=== PATIENT | female | born 1980 | race Caucasian/White ===

== ENCOUNTER 2017-12-10 07:46 | Day surgery (SDC) | payer BC, OTHER ==
[2017-12-10] MEDS: LR 1,000 ML IV (06:00)
[2017-12-10 08:33] LABS: CONTROL LINE UCG INT CTR LINE PRESENT; URINE PREG TEST NEGATIVE (NEGATIVE)
[2017-12-10] MEDS ORDERED: dexameTHASONE 4 MG/ML 1ML VIAL (J1100) As Ordered (10:04)
[2017-12-10] MEDS ORDERED: PROPOFOL 200 MG/20 ML VIAL As Ordered ×2 (10:04→11:08)
[2017-12-10] MEDS ORDERED: MIDAZOLAM INJ 2 MG/2 ML VIAL (J2250) As Ordered (10:04)
[2017-12-10] MEDS ORDERED: KETOROLAC 60 MG/2 ML VIAL (J1885) As Ordered (10:04)
[2017-12-10] MEDS ORDERED: fentaNYL 250 MCG/5 ML INJECTION (J3010) As Ordered (10:04)
[2017-12-10] MEDS ORDERED: ONDANSETRON 4MG/2ML VIAL (J2405) As Ordered (10:04)
[2017-12-10] MEDS ORDERED: ROCURONIUM BROMIDE 50 MG/5 ML VIAL As Ordered (10:04)
[2017-12-10] MEDS ORDERED: LIDOCAINE 2% INJ 100 MG/5 ML SDV (FOR ANES.) As Ordered (10:04)
[2017-12-10] MEDS ORDERED: GLYCOPYRROLATE INJ 0.2 MG/ML 2 ML VIAL As Ordered ×2 (10:36)
[2017-12-10] MEDS ORDERED: NEOSTIGMINE 10 MG/10 ML VIAL (J2710) As Ordered (10:36)
[2017-12-10] MEDS: BUPIVACAINE HCL 0.25% 30 ML VIAL As Ordered (10:54)
[2017-12-10] MEDS ORDERED: ACETAMINOPHEN TAB 650MG DOSE (2X325MG) PO (11:30)
[2017-12-10] MEDS ORDERED: IBUPROFEN 600 MG TAB PO (11:30)
[2017-12-10] MEDS ORDERED: PERCOCET 5MG/325MG TAB As Ordered (11:33)
[2017-12-10] MEDS: PERCOCET 5MG/325MG TAB PO ×2 (11:35→12:02)
[2017-12-10] MEDS ORDERED: fentaNYL 100 MCG/2 ML INJECTION (J3010) IV (11:45)
[2017-12-10] MEDS ORDERED: NORCO, ANEXSIA 5/325MG TABLET (HYDROcodone/ACETAMINOPHEN) PO (11:45)
[2017-12-10] MEDS ORDERED: LR 1,000 ML IV (11:45)
[2017-12-10] MEDS ORDERED: ONDANSETRON 4MG/2ML VIAL (J2405) IV (11:45)
== END 2017-12-10 14:00 | disposition home or self-care (01) ==
LOC: M SDC 07:46
DX: K80.20 Calculus of gallbladder without cholecystitis without obstruction (principal)
CPT/HCPCS: 47562

== ENCOUNTER 2024-09-02 10:33 | Day surgery (SDC) | payer BC ==
[~2024-09-02] VITALS: Ht 154.9 cm; Wt 74.3 kg
[~2024-09-02 10:33] MED LIST: ESTR1TAB PO; FLUO40CA PO; HYDR-3715 PO; IBUPOTC PO; LIDOCAINE 2% 100MG/5ML SDV (FOR ANES.) As Ordered ONE; MULTTAB20 PO; propofoL 200 MG/20 ML VIAL As Ordered ONE
[2024-09-02 11:47] VITALS: TEMP 97.1
[2024-09-02 12:07] VITALS: BP 134/77; O2SAT 100
== END 2024-09-02 12:08 | disposition home or self-care (01) ==
LOC: M OPP 10:33
PROVIDERS: ATTEND Internal Medicine Gastroenterology
DX: K62.5 Hemorrhage of anus and rectum (principal); K64.0 First degree hemorrhoids; K63.3 Ulcer of intestine; R10.32 Left lower quadrant pain; Z90.710 Acquired absence of both cervix and uterus; Z79.899 Other long term (current) drug therapy; Z79.3 Long term (current) use of hormonal contraceptives